=== PATIENT | female | born 1990 | race Caucasian/White ===

== ENCOUNTER → 2021-06-10 16:02 | Outpatient (CLI) | payer BC, SELFPAY ==
--- NOTE | ~2021-06-10 | XR_ITS ---
EXAMINATION: XR chest 2V DATE: 06/10/2021 16:22 INDICATION: Other chest pain. COVID-19 positive 2 weeks ago. TECHNIQUE: Frontal and lateral views of the chest were obtained. COMPARISON: None. FINDINGS: A calcified right lung nodule is consistent with old granulomatous disease. There are mild patchy airspace opacities in all right lung zones and in left mid and lower lung zones. No pleural ef fusion or pneumothorax. The heart size is normal. IMPRESSION: 1. Diffuse lung disease, consistent with COVID-19 pneumonia. Reviewed, dictated and finalized at location A. ROBE COORDINATOR
== END ==
PROVIDERS: PCP Family Medicine; Visit Provider Nurse Practitioner Family
DX: R07.89 Other chest pain (principal); J98.4 Other disorders of lung
CPT/HCPCS: 71046

== ENCOUNTER → 2021-09-16 14:19 | Outpatient (CLI) | payer BC, SELFPAY ==
--- NOTE | ~2021-09-16 | XR_ITS ---
EXAMINATION: XR chest 2V 09/16/2021 14:50 INDICATION: Pneumonia PROCEDURE: 2 view chest COMPARISON: 06/10/2021 FINDINGS: The lungs are clear. The cardiomediastinal silhouette is within normal limits. There are no pleural effusions. There is no pneumothorax suspected. IMPRESSION: 1: NO ACUTE CARDIOPULMONARY DISEASE. Reviewed, dictated and finalized at location B. CAL SPECIALIST
== END ==
PROVIDERS: PCP Family Medicine; Visit Provider Family Medicine
DX: U07.1 COVID-19 (principal); J12.82 Pneumonia due to coronavirus disease 2019
CPT/HCPCS: 71046